=== PATIENT | female | born 1940 | race African-American/Black ===

== ENCOUNTER 2017-06-17 16:12 | Inpatient (IN) ==
[2017-06-17] MEDS ORDERED: SODIUM CHLORIDE 0.9% 1,000 ML IV STA (16:44)
[2017-06-17] MEDS ORDERED: ACETAMINOPHEN 500 MG TABLET PO STA (16:45)
[2017-06-17] MEDS ORDERED: ALUM/MAG/SIMETH/LIDO VISC 1:1 30 ML BOTTLE PO STA (17:11)
[2017-06-17] MEDS ORDERED: ACETAMINOPHEN 650 MG SUPP RECTAL ONE (17:19)
[2017-06-17] MEDS ORDERED: cefTRIAXone 1,000 MG in SODIUM CHLORIDE 0.9% 100 ML IV STA (17:21)
[2017-06-17] MEDS ORDERED: ACETAMINOPHEN 650 MG SUPP RECTAL STA (17:28)
[2017-06-17 17:30] LABS: Basophils % 0.4 % (0.0-0.8); Eosinophils % 0.2 % (0.00-10.9); Hematocrit 44.3 VOL% (35.7-47.0); Hemoglobin 14.5 GM/DL (12.0-16.0); Immature Granulocytes % 0.2 %; Immature Granulocytes Absolute 0.02 #; Lymphocytes # 1.7 10*3/uL (1.4-4.0); Mean Corpuscular HGB Conc 32.7 GM/DL (32-36); Mean Corpuscular Hemoglobin 31 PG (27-34); Mean Corpuscular Volume 93.9 FL (87-102); Mean Platelet Volume 12.8 FL (9.6-12.0); Monocytes # 0.5 10*3/uL (0.11-0.8); Neutrophils # 5.8 10*3/uL (1.4-7.4); Neutrophils % 72.2 % (38.7-73.9); Platelet Count 114 T/CUMM (130-400); Red Blood Count 4.72 MC/CUMM (3.8-5.5); Red Cell Distribution Width 12.7 % (9.3-17.3); White Blood Count 8.1 T/CUMM (4-12)
[2017-06-17 17:41] LABS: PT Patient Result 10.6 SECS; Partial Thromboplastin Time 28.2 SECS (0-40)
[2017-06-17 17:43] LABS: Apearance,Urine CLEAR (Clear); Bilirubin,Urine Negative (Negative); Blood, Urine Moderate mg/dL (Negative); Glucose,Urine (UA) Negative (Negative); Ketones,Urine Negative (Negative); Nitrite,Urine Negative (Negative); Protein,Urine 100 MG/DL; RBC,Urine 5 /HPF (0-4); Urine Color Straw (Yellow); Urine Urobilinogen < 2.0 EU/DL (0.2-1.0); WBC,Urine <1 /HPF (0-6)
[2017-06-17 18:14] LABS: Albumin 3.8 G/DL (3.4-5.0); Bilirubin,Total 0.6 MG/DL (0.2-1.0); Calcium 8.8 MG/DL (8.5-10.1); Potassium 4.3 MMOL/L (3.5-5.1); Total Protein 8.2 G/DL (6.4-8.3)
[2017-06-17] MEDS ORDERED: cefTRIAXone 1,000 MG VIAL ONE (19:01)
[2017-06-17] MEDS ORDERED: GLUCAGON 1 MG VIAL IM PRN (19:15)
[2017-06-17] MEDS ORDERED: DEXTROSE 50% 25 GM/50 ML VIAL IV PRN (19:15)
[2017-06-17] MEDS ORDERED: ACETAMINOPHEN 325 MG TABLET PO PRN (19:15)
[2017-06-17] MEDS ORDERED: ONDANSETRON 4 MG/2 ML VIAL IV PRN (19:15)
[2017-06-17] MEDS ORDERED: INFLUENZA VIRUS VACCINE 0.5 ML SYRINGE IM ONE (21:45)
[2017-06-17] MEDS: ENOXAPARIN 40 MG/0.4 ML SYRINGE SUBCUT SCH (22:01)
[2017-06-17] MEDS: ATORVASTATIN 40 MG TABLET PO SCH (22:01)
[2017-06-17] MEDS: INSULIN REGULAR 100 UNIT/ML SUBCUT SCH (22:01)
[2017-06-18] MEDS: LATANOPROST 0.005% OPH SOLN 2.5 ML BOTTLE BOTH EYES SCH ×2 (00:30→21:00)
[2017-06-18] MEDS: AZITHROMYCIN INJ 500 MG in SODIUM CHLORIDE 0.9% 250 ML IV SCH ×2 (00:30→19:55)
[2017-06-18] MEDS: ALBUTEROL/IPRATROPIUM 3 ML NEB RESP TX SCH ×4 (00:58→20:13)
[2017-06-18 04:37] LABS: Basophils % 0.3 % (0.0-0.8); Hemoglobin 13.6 GM/DL (12.0-16.0); Immature Granulocytes % 0.2 %; Immature Granulocytes Absolute 0.01 #; Lymphocytes # 2.7 10*3/uL (1.4-4.0); Mean Corpuscular HGB Conc 32.4 GM/DL (32-36); Mean Corpuscular Hemoglobin 30 PG (27-34); Mean Corpuscular Volume 92.9 FL (87-102); Mean Platelet Volume 12.6 FL (9.6-12.0); Monocytes # 0.5 10*3/uL (0.11-0.8); Neutrophils # 3.3 10*3/uL (1.4-7.4); Neutrophils % 50.5 % (38.7-73.9); Platelet Count 110 T/CUMM (130-400); Red Blood Count 4.52 MC/CUMM (3.8-5.5); Red Cell Distribution Width 12.6 % (9.3-17.3); White Blood Count 6.5 T/CUMM (4-12)
[2017-06-18 05:10] LABS: Albumin 3.3 G/DL (3.4-5.0); Bilirubin,Total 0.9 MG/DL (0.2-1.0); Calcium 8.3 MG/DL (8.5-10.1); Osmolality,Calculated 275.8 MOS/KG (273-304); Potassium 3.8 MMOL/L (3.5-5.1); Total Protein 7.5 G/DL (6.4-8.3)
[2017-06-18] MEDS ORDERED: POLYETHYLENE GLYCOL POWDER 17 GM PACK PO PRN (09:13)
[2017-06-18] MEDS: INSULIN REGULAR 100 UNIT/ML SUBCUT SCH ×4 (09:19→20:59)
[2017-06-18] MEDS: FOLIC ACID 1 MG TABLET PO SCH (09:31)
[2017-06-18] MEDS: ALLOPURINOL 100 MG TABLET PO SCH (09:31)
[2017-06-18] MEDS: PANTOPRAZOLE 40 MG TABLET PO SCH (09:31)
[2017-06-18] MEDS: ATENOLOL 50 MG TABLET PO SCH (09:31)
[2017-06-18] MEDS: CALCIUM (CARBONATE) 600 MG TABLET PO SCH (09:31)
[2017-06-18] MEDS: GLIMEPIRIDE 2 MG TABLET PO SCH (09:31)
[2017-06-18] MEDS ORDERED: ALBUTEROL/IPRATROPIUM 3 ML NEB RESP TX SCH (19:30)
[2017-06-18] MEDS: ATORVASTATIN 40 MG TABLET PO SCH (20:52)
[2017-06-18] MEDS: ENOXAPARIN 40 MG/0.4 ML SYRINGE SUBCUT SCH (20:53)
[2017-06-19] MEDS: ALBUTEROL/IPRATROPIUM 3 ML NEB RESP TX SCH ×4 (00:26→19:04)
[2017-06-19 06:40] LABS: Basophils % 0.3 % (0.0-0.8); Eosinophils # 0.1 10*3/uL (0.0-0.87); Hematocrit 39.6 VOL% (35.7-47.0); Hemoglobin 12.8 GM/DL (12.0-16.0); Immature Granulocytes % 0.2 %; Immature Granulocytes Absolute 0.01 #; Lymphocytes # 2.6 10*3/uL (1.4-4.0); Mean Corpuscular HGB Conc 32.3 GM/DL (32-36); Mean Corpuscular Hemoglobin 31 PG (27-34); Mean Corpuscular Volume 94.7 FL (87-102); Mean Platelet Volume 12.7 FL (9.6-12.0); Monocytes # 0.5 10*3/uL (0.11-0.8); Monocytes % 8.3 % (1.7-12.7); Neutrophils # 2.9 10*3/uL (1.4-7.4); Neutrophils % 47.2 % (38.7-73.9); Platelet Count 94 T/CUMM (130-400); Red Blood Count 4.18 MC/CUMM (3.8-5.5); Red Cell Distribution Width 12.9 % (9.3-17.3); White Blood Count 6.1 T/CUMM (4-12)
[2017-06-19 07:15] LABS: Calcium 8.6 MG/DL (8.5-10.1); Magnesium 2.2 MG/DL (1.8-2.4); Osmolality,Calculated 282.3 MOS/KG (273-304); Potassium 4.1 MMOL/L (3.5-5.1)
[2017-06-19 07:44] LABS: Hypochromasia 1+; Lymphocytes 39 % (20-55); Platelet Estimate Decreased; Segmented Neutrophils 54 % (50-85); Total Cells Counted 100
[2017-06-19] MEDS: GLIMEPIRIDE 2 MG TABLET PO SCH (08:41)
[2017-06-19] MEDS: INSULIN REGULAR 100 UNIT/ML SUBCUT SCH ×4 (08:41→20:18)
[2017-06-19] MEDS: PANTOPRAZOLE 40 MG TABLET PO SCH (08:42)
[2017-06-19] MEDS: FOLIC ACID 1 MG TABLET PO SCH (08:42)
[2017-06-19] MEDS: CALCIUM (CARBONATE) 600 MG TABLET PO SCH (08:42)
[2017-06-19] MEDS: ALLOPURINOL 100 MG TABLET PO SCH (08:42)
[2017-06-19] MEDS: ATENOLOL 50 MG TABLET PO SCH (08:47)
[2017-06-19] MEDS: ATORVASTATIN 40 MG TABLET PO SCH (20:02)
[2017-06-19] MEDS: ENOXAPARIN 40 MG/0.4 ML SYRINGE SUBCUT SCH (20:03)
[2017-06-19] MEDS: LATANOPROST 0.005% OPH SOLN 2.5 ML BOTTLE BOTH EYES SCH (20:04)
[2017-06-20] MEDS: ALBUTEROL/IPRATROPIUM 3 ML NEB RESP TX SCH ×4 (00:05→19:44)
[2017-06-20] MEDS: ALLOPURINOL 100 MG TABLET PO SCH (09:12)
[2017-06-20] MEDS: ATENOLOL 50 MG TABLET PO SCH (09:12)
[2017-06-20] MEDS: PANTOPRAZOLE 40 MG TABLET PO SCH (09:12)
[2017-06-20] MEDS: FOLIC ACID 1 MG TABLET PO SCH (09:12)
[2017-06-20] MEDS: CALCIUM (CARBONATE) 600 MG TABLET PO SCH (09:12)
[2017-06-20] MEDS: GLIMEPIRIDE 2 MG TABLET PO SCH (09:13)
[2017-06-20] MEDS: INSULIN REGULAR 100 UNIT/ML SUBCUT SCH ×4 (09:16→20:36)
[2017-06-20] MEDS: ENOXAPARIN 40 MG/0.4 ML SYRINGE SUBCUT SCH (20:36)
[2017-06-20] MEDS: ATORVASTATIN 40 MG TABLET PO SCH (20:36)
[2017-06-20] MEDS: LATANOPROST 0.005% OPH SOLN 2.5 ML BOTTLE BOTH EYES SCH (20:48)
[2017-06-21] MEDS: ALBUTEROL/IPRATROPIUM 3 ML NEB RESP TX SCH ×4 (01:27→19:51)
[2017-06-21 06:16] LABS: Basophils % 0.5 % (0.0-0.8); Eosinophils # 0.3 10*3/uL (0.0-0.87); Hematocrit 38.5 VOL% (35.7-47.0); Hemoglobin 12.6 GM/DL (12.0-16.0); Immature Granulocytes % 0.3 %; Immature Granulocytes Absolute 0.02 #; Lymphocytes # 2.7 10*3/uL (1.4-4.0); Lymphocytes % 41.3 % (21.3-54.2); Mean Corpuscular HGB Conc 32.7 GM/DL (32-36); Mean Corpuscular Hemoglobin 31 PG (27-34); Mean Corpuscular Volume 94.6 FL (87-102); Mean Platelet Volume 12.9 FL (9.6-12.0); Monocytes # 0.4 10*3/uL (0.11-0.8); Monocytes % 6.6 % (1.7-12.7); Neutrophils # 3.1 10*3/uL (1.4-7.4); Neutrophils % 47.3 % (38.7-73.9); Platelet Count 103 T/CUMM (130-400); Red Blood Count 4.07 MC/CUMM (3.8-5.5); Red Cell Distribution Width 12.7 % (9.3-17.3); White Blood Count 6.5 T/CUMM (4-12)
[2017-06-21 06:41] LABS: Eosinophils 5 % (0-10); Giant Platelets Few; Hypochromasia 1+; Lymphocytes 39 % (20-55); Platelet Estimate Decreased; Segmented Neutrophils 51 % (50-85); Total Cells Counted 100
[2017-06-21 06:44] LABS: Calcium 8.6 MG/DL (8.5-10.1); Osmolality,Calculated 281.3 MOS/KG (273-304); Potassium 4.1 MMOL/L (3.5-5.1)
[2017-06-21] MEDS: INSULIN REGULAR 100 UNIT/ML SUBCUT SCH ×4 (07:49→20:31)
[2017-06-21] MEDS: ALLOPURINOL 100 MG TABLET PO SCH (08:28)
[2017-06-21] MEDS: FOLIC ACID 1 MG TABLET PO SCH (08:28)
[2017-06-21] MEDS: GLIMEPIRIDE 2 MG TABLET PO SCH (08:28)
[2017-06-21] MEDS: CALCIUM (CARBONATE) 600 MG TABLET PO SCH (08:28)
[2017-06-21] MEDS: PANTOPRAZOLE 40 MG TABLET PO SCH (08:28)
[2017-06-21] MEDS: ATENOLOL 50 MG TABLET PO SCH (08:29)
[2017-06-21] MEDS: ATORVASTATIN 40 MG TABLET PO SCH (21:44)
[2017-06-21] MEDS: LATANOPROST 0.005% OPH SOLN 2.5 ML BOTTLE BOTH EYES SCH (21:45)
[2017-06-21] MEDS: ENOXAPARIN 40 MG/0.4 ML SYRINGE SUBCUT SCH (21:48)
[2017-06-22] MEDS: ALBUTEROL/IPRATROPIUM 3 ML NEB RESP TX SCH ×4 (00:39→19:02)
[2017-06-22] MEDS: GLIMEPIRIDE 2 MG TABLET PO SCH (07:06)
[2017-06-22] MEDS: INSULIN REGULAR 100 UNIT/ML SUBCUT SCH ×4 (08:46→22:28)
[2017-06-22] MEDS: ATENOLOL 50 MG TABLET PO SCH (08:47)
[2017-06-22] MEDS: ALLOPURINOL 100 MG TABLET PO SCH (08:47)
[2017-06-22] MEDS: PANTOPRAZOLE 40 MG TABLET PO SCH (08:47)
[2017-06-22] MEDS: CALCIUM (CARBONATE) 600 MG TABLET PO SCH (08:47)
[2017-06-22] MEDS: FOLIC ACID 1 MG TABLET PO SCH (08:47)
[2017-06-22] MEDS ORDERED: predniSONE 5 MG TABLET PO ONE (11:00)
[2017-06-22] MEDS: ATORVASTATIN 40 MG TABLET PO SCH (21:45)
[2017-06-22] MEDS: CEFDINIR 300 MG CAPSULE PO SCH (21:45)
[2017-06-22] MEDS: ENOXAPARIN 40 MG/0.4 ML SYRINGE SUBCUT SCH (21:47)
[2017-06-22] MEDS: LATANOPROST 0.005% OPH SOLN 2.5 ML BOTTLE BOTH EYES SCH (21:49)
[2017-06-23] MEDS: ALBUTEROL/IPRATROPIUM 3 ML NEB RESP TX SCH ×2 (02:45→07:46)
[2017-06-23] MEDS: CEFDINIR 300 MG CAPSULE PO SCH (08:35)
[2017-06-23] MEDS: ATENOLOL 50 MG TABLET PO SCH (08:35)
[2017-06-23] MEDS: GLIMEPIRIDE 2 MG TABLET PO SCH (08:35)
[2017-06-23] MEDS: CALCIUM (CARBONATE) 600 MG TABLET PO SCH (08:36)
[2017-06-23] MEDS: PANTOPRAZOLE 40 MG TABLET PO SCH (08:36)
[2017-06-23] MEDS: ALLOPURINOL 100 MG TABLET PO SCH (08:36)
[2017-06-23] MEDS: FOLIC ACID 1 MG TABLET PO SCH (08:36)
[2017-06-23] MEDS: INSULIN REGULAR 100 UNIT/ML SUBCUT SCH (08:36)
[2017-06-23] MEDS: ENOXAPARIN 40 MG/0.4 ML SYRINGE SUBCUT SCH (08:36)
[2017-06-23] MEDS ORDERED: COLCHICINE 0.6 MG TABLET PO ONE (10:27)
[2017-06-23 16:03] VITALS: BP 140/88
== END 2017-06-23 14:35 | disposition home or self-care (01) | DRG 195 ==
LOC: EDUNIT# → EDBD → N.ED 16:12 → N.EDINP 18:29 → SUATTDRO 18:29 → N.2E 20:18
PROVIDERS: ADMIT Internal Medicine; ATTEND Internal Medicine